=== PATIENT | male | born 1985 | race Caucasian/White ===

== ENCOUNTER 2022-05-27 17:04 | Observation (INO) | payer SELFPAY ==
[2022-05-27 18:26] LABS: Absolute Lymphocytes (CBC) 0.5 K/uL (0.7-4.9); Hematocrit 47.2 % (39.6-49.0); Lymphocytes % 6.2 % (15.3-44.8); MCV 84.6 fL (80-100); MPV 6.6 fL (7.6-11.3); RBC Red Blood Cell Count 5.57 M/uL (4.33-5.43)
[2022-05-27] MEDS ORDERED: MORPHINE 4 MG/ML SYR ONE (18:30)
[2022-05-27] MEDS ORDERED: NA CHLORIDE 0.9% 1,000 ML ONE (18:31)
[2022-05-27] MEDS ORDERED: ONDANSETRON 4 MG/2 ML VIAL ONE ×2 (18:31→20:47)
[2022-05-27 18:43] LABS: Albumin 4.5 g/dL (3.4-5.0); Potassium 3.3 mmol/L (3.5-5.1); Protein, Total 7.6 g/dL (6.4-8.2)
[2022-05-27 19:19] LABS: Urine Blood Negative (Negative); Urine Glucose Negative (Negative); Urine Protein 1+ (Negative); Urine pH 8.5 (5.0-7.0)
--- NOTE | 2022-05-27 19:50 | RAD REPORT ---
EXAM DESCRIPTION: CTAbdomen Pelvis W Contrast - 05/27/2022 7:39 pm CLINICAL HISTORY: Abdominal pain. RLQ abdominal pain COMPARISON: No comparisons TECHNIQUE: Biphasic CT imaging of the abdomen and pelvis was performed with 100 ml non-ionic IV cont rast. All CT scans are performed using dose optimization technique as appropriate and may include automated exposure control or mA/KV adjustment according to patient size. FINDINGS: Linear atelectasis is present both lung bases. Cardiac size is prominent. The liver, spleen, pancreas, adrenal glands and kidneys are within normal limits. Benign right renal cyst. Mild free fluid is seen in pelvis. The appendix is noted to be dilated to 10 mm with mild fluid in th e right lower quadrant. This is suspicious for early acute appendicitis. No bowel obstruction or shant e intraperitoneal air. No evidence of significant lymphadenopathy. No suspicious bony findings. IMPRESSION: Acute appendicitis is suspected.
[2022-05-27] MEDS ORDERED: FAMOTIDINE 20 MG/2 ML VIAL IV ONE (19:55)
[2022-05-27] MEDS ORDERED: POTASSIUM CL SA 10 MEQ TAB PO ONE (19:55)
--- NOTE | 2022-05-27 20:02 | EDPHYS ---
Physician Documentation [facility] Name: Vikas Abreu Jr Age: 37 yrs Sex: Male : 1985 Arrival Date: 05/27/2022 Time: 17:06 Bed DIS2 Private MD: ED Physician Eric Amaro HPI: 05/27 17:40 This 37 yrs old Male presents to ER via Ambulatory with complaints of Abdominal Pain. jh7 17:40 The patient presents with abdominal pain in the periumbilical area. right lower jh7 quadrant. Onset: The symptoms/episode began/occurred today. Associated signs and symptoms: Pertinent positives: nausea and vomiting, Pertinent negatives: diarrhea, fever. Patient presents with lower abdominal pain starting at 10 AM. Reports that he has vomited a few times, but denies diarrhea or fever. Reports that he took a COVID test today and that it was negative. History of a pericardial effusion at the age of 18. No history of abdominal problems.. Historical: - Allergies: 17:45 No Known Allergies; iw - Home Meds: 17:45 Cymbalta oral [Active]; trazodone Oral [Active]; iw - PSHx: 17:45 pericardiocentesis; iw ROS: 17:40 Constitutional: Negative for fever, chills, and weight loss, ENT: Negative for injury, jh7 pain, and discharge, Neck: Negative for injury, pain, and swelling, Cardiovascular: Negative for chest pain, palpitations, and edema, Respiratory: Negative for shortness of breath, cough, wheezing, and pleuritic chest pain, Back: Negative for injury and pain, Skin: Negative for injury, rash, and discoloration, Neuro: Negative for headache, weakness, numbness, tingling, and seizure. 17:40 Abdomen/GI: Positive for abdominal pain, nausea and vomiting, Negative for diarrhea, black/tarry stool, rectal bleeding. 17:40 All other systems are negative. Exam: 17:40 Head/Face: Normocephalic, atraumatic. Neck: Trachea midline, no thyromegaly or masses jh7 palpated, and no cervical lymphadenopathy. Supple, full range of motion without nuchal rigidity, or vertebral point tenderness. No Meningismus. Cardiovascular: Regular rate and rhythm with a normal S1 and S2. No gallops, murmurs, or rubs. Normal PMI, no JVD. No pulse deficits. Respiratory: Lungs have equal breath sounds bilaterally, clear to auscultation and percussion. No rales, rhonchi or wheezes noted. No increased work of breathing, no retractions or nasal flaring. Back: No spinal tenderness. No costovertebral tenderness. Full range of motion. Skin: Warm, dry with normal turgor. Normal color with no rashes, no lesions, and no evidence of cellulitis. MS/ Extremity: Pulses equal, no cyanosis. Neurovascular intact. Full, normal range of motion. Neuro: Awake and alert, GCS 15, oriented to person, place, time, and situation. Sensory grossly intact. Normal gait. 17:40 Constitutional: The patient appears alert, awake, uncomfortable. 17:40 Abdomen/GI: Inspection: abdomen appears normal, Bowel sounds: normal, Palpation: soft, mild abdominal tenderness, in the umbilical area and right lower quadrant. Vital Signs: 17:44 BP 134 / 90; Pulse 83; Resp 16; Temp 97.4; Pulse Ox 98% on R/A; iw 19:52 BP 129 / 90; Pulse 86; Resp 16; Temp 98.3(TE); Pulse Ox 97% on R/A; iw MDM: 17:44 Patient medically screened. kb 19:22 Medication response: morphine markedly relieved the patient's pain. Symptoms have jh7 improved, Zofran markedly relieved the patient's nausea. 19:57 Differential diagnosis: appendicitis, bowel obstruction, non-specific abd pain. Data [facility] reviewed: vital signs, nurses notes, lab test result(s), radiologic studies, CT scan. Data interpreted: Pulse oximetry: is 97 %. Interpretation: normal. Counseling: I had a detailed discussion with the patient and/or guardian regarding: the historical points, exam findings, and any diagnostic results supporting the discharge/admit diagnosis, the need for further work-up and treatment in the hospital. Physician consultation: Ike Bradley MD was called at 19:59, was contacted at 19:59, regarding admission, need to come to ED to see patient, and will see patient in ED. ED course: Discussed CT findings of acute appendicitis with Dr. Paredes, general surgeon. He states that he will come into the ED to evaluate the patient, and to let the warehouseman know.. 05/27 17:31 Order name: CBC with Diff; Complete Time: 18:31 [facility] 05/27 17:31 Order name: CMP; Complete Time: 18:48 [facility] 05/27 17:31 Order name: Lipase; Complete Time: 18:48 [facility] 05/27 17:31 Order name: CT Abd/Pelvis - IV Contrast Only; Complete Time: 19:52 [facility] 05/27 19:20 Order name: Urine Dipstick-Ancillary; Complete Time: 19:20 EDMS 05/27 20:07 Order name: SARS RAPID 2 05/27 17:31 Order name: IV Saline Lock; Complete Time: 18:31 [facility] 05/27 17:31 Order name: Labs collected and sent; Complete Time: 18:31 [facility] 05/27 17:31 Order name: Urine Dipstick-Ancillary (obtain specimen); Complete Time: 19:19 [facility] Administered Medications: 18:31 Drug: NS 0.9% 1000 ml Route: IV; Rate: 1 bolus; Site: left antecubital; iw 18:31 Drug: Zofran (Ondansetron) 4 mg Route: IVP; Site: left antecubital; iw 18:31 Drug: morphine 4 mg Route: IVP; Infused Over: 4 mins; Site: left antecubital; iw 19:53 Drug: Pepcid (famotidine) 20 mg Route: IVP; Site: left antecubital; iw 19:53 Drug: Potassium Chloride 40 mEq Route: PO; iw 20:20 Drug: Zosyn (piperacillin-tazobactam) 3.375 grams Route: IVPB; Infused Over: 60 mins; vc1 Site: left antecubital; 20:20 Drug: fentaNYL (PF) 50 mcg Route: IVP; Site: left antecubital; vc1 Disposition Summary: 05/27/22 20:01 Hospitalization Ordered Hospitalization Status: Observation [facility] Provider: Ike Bradley Karmen Condition: Stable [facility] Problem: new [facility] Symptoms: have improved [facility] Bed/Room Type: Standard [facility] Location: Operating Room(05/27/22 20:06) Room Assignment: (05/27/22 20:06) Diagnosis - Unspecified acute appendicitis [facility] Forms: - Medication Reconciliation Form [facility] - SBAR form [facility] Signatures: Dispatcher [employer] Chula Baca, SHIP JOINER-C SHIP JOINER-Daniela Mota RN RN mw Williams, Irene, RN RN Karey Ambrocio RN RN vc1 Mary Brambila, JESENIA [place] [id number] Corrections: (The following items were deleted from the chart) 20:06 20:01 Telemetry/MedSurg (observation) [facility] 20:06 20:01 [facility]
--- NOTE | 2022-05-27 20:02 | ER ---
Nurse's Notes [facility] Name: Vikas Abreu Jr Age: 37 yrs Sex: Male : 1985 Arrival Date: 05/27/2022 Time: 17:06 Bed DIS2 Private MD: Diagnosis: Unspecified acute appendicitis Presentation: 05/27 17:44 Chief complaint: Patient states: lower abd pain since 10 am, took some pepto, +vomit , iw +chills, +nausea. Coronavirus screen: Client presents with at least one sign or symptom that may indicate coronavirus-19. Ebola Screen: Patient negative for fever greater than or equal to 101.5 degrees Fahrenheit, and additional compatible Ebola Virus Disease symptoms Patient denies exposure to infectious person. Patient denies travel to an Ebola-affected area in the 21 days before illness onset. No symptoms or risks identified at this time. Initial Sepsis Screen: Does the patient meet any 2 criteria? No. Patient's initial sepsis screen is negative. Does the patient have a suspected source of infection? No. Patient's initial sepsis screen is negative. Risk Assessment: Do you want to hurt yourself or someone else? Patient reports no desire to harm self or others. Onset of symptoms was May 27, 2022. 17:44 Method Of Arrival: Ambulatory iw 17:44 Acuity: DONNA 3 iw Historical: - Allergies: 17:45 No Known Allergies; iw - Home Meds: 17:45 Cymbalta oral [Active]; trazodone Oral [Active]; iw - PSHx: 17:45 pericardiocentesis; iw Screenin:14 Abuse screen: Denies threats or abuse. Denies injuries from another. Nutritional iw screening: No deficits noted. Tuberculosis screening: No symptoms or risk factors identified. Fall Risk IV access (20 points). Assessment: 19:14 Reassessment: Patient appears in no apparent distress at this time. Patient and/or iw family updated on plan of care and expected duration. Pain level reassessed. Patient is alert, oriented x 3, equal unlabored respirations, skin warm/dry/pink. Patient states feeling better. Vital Signs: 17:44 BP 134 / 90; Pulse 83; Resp 16; Temp 97.4; Pulse Ox 98% on R/A; iw 19:52 BP 129 / 90; Pulse 86; Resp 16; Temp 98.3(TE); Pulse Ox 97% on R/A; iw ED Course: 17:06 Patient arrived in ED. rg4 17:13 [facility] jh7 17:13 Eric Amaro MD is Attending Physician. jh7 17:44 PHCP role handed off by Mary Brambila FNP kb 17:44 Chula Sutton FNP-C is PHCP. kb 17:45 Triage completed. iw 17:45 Mary Brambila FNP is PHCP. kb 17:46 Arm band placed on. iw 17:50 Initial lab(s) drawn, by me, sent to lab. Inserted saline lock: 20 gauge in left iw antecubital area, using aseptic technique. Blood collected. 19:16 Kena Ram, RN is Primary Nurse. iw 19:41 CT Abd/Pelvis - IV Contrast Only In Process Unspecified. EDMS 20:00 Ike Bradley MD is Hospitalizing Provider. jh7 20:30 SARS RAPID Sent. mw2 20:47 No provider procedures requiring assistance completed. Patient admitted, IV remains in vc1 place. Administered Medications: 18:31 Drug: NS 0.9% 1000 ml Route: IV; Rate: 1 bolus; Site: left antecubital; iw 18:31 Drug: Zofran (Ondansetron) 4 mg Route: IVP; Site: left antecubital; iw 18:31 Drug: morphine 4 mg Route: IVP; Infused Over: 4 mins; Site: left antecubital; iw 19:53 Drug: Pepcid (famotidine) 20 mg Route: IVP; Site: left antecubital; iw 19:53 Drug: Potassium Chloride 40 mEq Route: PO; iw 20:20 Drug: Zosyn (piperacillin-tazobactam) 3.375 grams Route: IVPB; Infused Over: 60 mins; vc1 Site: left antecubital; 20:20 Drug: fentaNYL (PF) 50 mcg Route: IVP; Site: left antecubital; vc1 Medication: 20:48 VIS not applicable for this client. vc1 Outcome: 20:01 Decision to Hospitalize by Provider. jh7 20:47 Admitted to OR accompanied by nurse, via wheelchair. vc1 20:47 Condition: stable 20:47 Instructed on Need for surgery 20:48 Patient left the ED. vc1 Signatures: Dispatcher [employer] EDChula Vásquez, JESENIA-C PASSENGER VESSEL CHEF-Kena Napier RN RN Tamar Bhatt rg4 Caryn Miner mw2 Karey Ambrocio RN RN vc1 Mary Brambila, JESENIA HERNANDEZP jh7 Corrections: (The following items were deleted from the chart) 19:54 19:52 BP 129 / 90; Pulse 86bpm; Resp 16bpm; Pulse Ox 97% RA; iw iw
[2022-05-27] MEDS ORDERED: FENTANYL CITR 100 MCG/2 ML ONE ×2 (20:21→20:47)
[2022-05-27] MEDS ORDERED: NA CHLORIDE 0.9% 100 ML ONE (20:22)
[2022-05-27] MEDS ORDERED: PIPERACIL/TAZO 3.375 GM VIAL IV ONE (20:22)
[2022-05-27] MEDS ORDERED: propofoL 200 MG/20 ML VIAL IV ONE (20:44)
[2022-05-27] MEDS ORDERED: LIDOCAINE 1% MPF 5 ML VIAL ONE (20:45)
[2022-05-27] MEDS ORDERED: ROCURONIUM 50 MG/5 ML VIAL IV ONE (20:46)
[2022-05-27] MEDS ORDERED: KETOROLAC 30 MG/ML INJ ONE (20:47)
[2022-05-27] MEDS ORDERED: dexAMETHasone 10 MG/ML VIAL ONE (20:47)
[2022-05-27] MEDS: BUPIVACAINE 0.25% PF 10 ML VIAL ONE ×2 (20:55→21:30)
[2022-05-27] MEDS ORDERED: Ringers Lactate 1,000 ML IV ONE (20:56)
[2022-05-27 21:15] LABS: SARS-CoV-2 Antigen Rapid Res Negative (Negative)
[2022-05-27] MEDS ORDERED: ONDANSETRON 4 MG/2 ML VIAL IV PRN (21:30)
[2022-05-27] MEDS ORDERED: MORPHINE 4 MG/ML SYR IV PRN (21:30)
[2022-05-27] MEDS ORDERED: NA CHLORIDE 0.9% 1,000 ML IV SCH (21:30)
[2022-05-27] MEDS ORDERED: GLYCOPYRROLATE 0.2 MG/ML SYR ONE (21:49)
--- NOTE | 2022-05-27 22:04 | P.OP ---
Preoperative diagnosis: Acute non-perforated appendicitis Postoperative diagnosis: Acute non-perforated appendicitis Primary procedure: Laparoscopic Appendectomy Anesthesia: GETA + Local Estimated blood loss: <5cc Specimen: vermiform appendix Findings: Acute non-perforated appendicitis Complications: None Transferred to: Recovery Room Condition: Good
[2022-05-27] MEDS ORDERED: MORPHINE 2 MG/ML SYR IV PRN (22:07)
[2022-05-27] MEDS ORDERED: NEOSTIGMINE 1 MG/ML -10 ML VIAL ONE (22:17)
[2022-05-27] MEDS: HYDROMORPHONE HCL 1 MG/ML INJ ONE ×2 (22:30→22:35)
[2022-05-27 22:54] VITALS: BMI 24.4
[2022-05-27 23:11] VITALS: O2SAT 96
[2022-05-27] MEDS: HYDROCODONE/APAP 7.5/325 MG TAB PO PRN (23:17)
[2022-05-27] MEDS: D5.45NS W/KCL 20MEQ 1,000 ML IV SCH (23:19)
[2022-05-27] MEDS ORDERED: TRAZODONE 50 MG TABLET PO ONE (23:54)
--- NOTE | 2022-05-27 23:59 | OP ---
Date of Procedure: 05/27/2022 Surgeon: Ike Bradley MD, 10:05 p.m. Preoperative Diagnosis: Acute nonperforated appendicitis. Postoperative Diagnosis: Acute nonperforated appendicitis. Procedure Performed: Laparoscopic appendectomy. Anesthesia: General endotracheal with local with 0.5% Marcaine with epinephrine. Estimated Blood Loss: Less than 5 cc. Specimen: Vermiform appendix. Findings: Acute nonperforated appendicitis. Complications: None immediate. The patient was transferred to recovery room in good condition. Procedure In Detail: After informed consent was obtained, the patient was brought to the operating r oom and prepped and draped in the usual sterile fashion. After adequate anesthesia was achieved, an infraumbilical area was anesthetized with 0.25% Marcaine and sharply incised. A 5 mm 0-degree optica l trocar was attempted to be placed in the abdomen; however, insufflation was challenging at this poi nt due to strength of the abdominal wall. As such, I made a counter incision in the epigastrium. Th is was similarly anesthetized and sharply incised. A 5 mm trocar was placed under direct visualizati on without evidence of complication. Insufflation was obtained to 15 mmHg at this time. There was n o injury to vital structures upon entry into the abdomen. The additional prior placed attempted troc ar site in the infraumbilical position was inspected at this point. There was no injury at this poin t. I then passed a 12 mm trocar under direct visualization without evidence of complication. Additi onal trocar was placed in the right lower quadrant. This was a 5 mm trocar placed under direct visio n without evidence of complication. The patient was positioned head down right side up position. Th e appendix was grasped, elevated, and found to be nonperforated appendicitis consistent findings at t his point. There was some murky fluid in the right lower quadrant consistent with an inflammatory pr ocess. There were some adhesions to the appendix, which were taken down using the LigaSure device wi thout evidence of complication. The mesoappendiceal window was created with the Lubna retractor. Endo-KATHIA purple load was fired across the base of the appendix with good approximation of tissues. A t this point, I used a LigaSure device to take the mesoappendix down without evidence of complication . An Endo Catch bag was placed in the abdomen. The appendix was placed in Endo Catch bag, removed t hrough the umbilical trocar and sent off for pathologic examination. The abdomen was then copiously irrigated multiple times and suctioned out until completely clear. All fluid and effluent were sucti oned out. The pelvis was washed out as well at this point and suctioned out until completely clear. The patient was positioned back in neutral position. The remaining effluent was suctioned out. The umbilical trocar site was then closed using a Anant-Michelet suture passer with 0 Vicryl in interru pted fashion with good approximation of tissues. No hemostatic measures were required throughout the procedure. The remaining 2 trocars were used to decompress the abdomen under direct visualization w ithout complication and remaining trocars were removed. All skin incisions were copiously irrigated and closed with interrupted luciano. Surgicel was placed over top. The patient tolerated the proced ure without evidence of complication and transferred to PACU in good condition. All counts were naseem ect at the end of the case. JAZMIN/MEETA Voice ID: [id number] Report ID: [id number]
[2022-05-28] MEDS: PIPER TAZO 3.375 GM in NA CHLORIDE 0.9% 100 ML IV SCH ×2 (02:00→08:18)
[2022-05-28 04:13] LABS: Absolute Lymphocytes (CBC) 0.5 K/uL (0.7-4.9); Hematocrit 45.7 % (39.6-49.0); Lymphocytes % 6.7 % (15.3-44.8); MCV 84.9 fL (80-100); MPV 7.4 fL (7.6-11.3); RBC Red Blood Cell Count 5.38 M/uL (4.33-5.43)
[2022-05-28 04:30] LABS: Potassium 4.8 mmol/L (3.5-5.1)
--- NOTE | 2022-05-28 06:00 | HP ---
Date of Admission: 05/27/2022 Brief History Of Present Illness: The patient is a 37-year-old male with a past medical hi story of Pectus carinatum, status post repair at the age of 18 or 19. He subsequently had a pericard iocentesis for pericardial effusion, which recurred and he ultimately required a pericardial window c ompleted in 2003. He presents with a 1-1/2 day history of periumbilical, now isolated to the right l ower quadrant abdominal pain associated with nausea, vomiting, worsening tenderness, fever, headache, and severe worsening abdominal pain. Decreased p.o. intake is also associated. He is unaware of an y sick contacts. No recent travel. No COVID exposure by his report. Past Medical History: Significant for Pectus carinatum, cardiac arrhythmia of uncertain etiology. Past Surgical History: Includes, 1.Surgical repair of his Pectus carinatum. 2.Pericardiocentesis. 3.Pericardial window for recurrent pericardial effusion. 4.He has had adenoids and tonsils removed. Home Medications: Include Cymbalta and trazodone. Allergies: NO KNOWN DRUG ALLERGIES. Social History: He smokes cigarettes every day as well as marijuana. He denies any other recreation al drug use. He is currently unemployed. He lives with his . They have recently moved here [facility] and are living with family here. Review of Systems: Ten-point review of systems other than HPI, denies. Physical Examination: General: He is awake, alert, and oriented. Psychiatric: He is appropriate and conversive. HEENT: Normocephalic. Sclerae are anicteric. Mucous membranes moist. Oropharynx clear. Neck: Supple without JVD. Chest: Normal expansion and excursion, well-healed surgical scars were evident on the sternal area o f the left thoracotomy appearing incision. Otherwise, pulmonary clear to auscultation bilaterally. Abdomen: Soft with positive right lower quadrant tenderness at McBurney's point and peritonitis foca lly at the same region. Positive voluntary guarding. Positive rebound. Skin: Warm and dry. Extremities: No clubbing, cyanosis or edema. Vital Signs: Blood pressure 129/90, pulse 86, respiratory rate 16, temperature 98.3, and pulse ox 97 % on room air. Laboratory Exam: He had a laboratory exam also which revealed a white blood cell count of 8.8, hemog lobin is 15.9, hematocrit 47.2, platelet count was 140, neutrophils 87%. His chemistry 136, potassiu m 3.3, chloride 101, carbon dioxide 28, BUN 13, creatinine 1.04, glucose 91, total bilirubin 1.0, AST 34, ALT 52, alkaline phosphatase 61, lipase 41. His urine had a pH of 8.5, 1+ ketones, 1+ protein. Serology of COVID is currently pending. He had a CT scan performed of the abdomen and pelvis haleyi sanjeevy read and reviewed by myself as findings consistent with early appendicitis, specifically there i s mild free fluid in the pelvis. The appendix was noted to be dilated 10 mm with mild free fluid in the right lower quadrant suspicious for early appendicitis. No bowel obstruction, free air, free int raperitoneal air. No evidence of significant lymphadenopathy. Assessment And Plan: This is a 37-year-old male, who comes in with signs and symptoms of early nonpe rforated appendicitis. 1.IV fluid hydration. 2.Antibiotic coverage with Zosyn 3.375 IV q.6h. 3.I have explained the risks, benefits, and alternatives of laparoscopic possible open appendectomy including, but not limited to bleeding, infection, damage to surrounding tissues, need for the furthe r operation and procedures postoperative infection, need for antibiotics and other treatments in the perioperative period. The patient agrees to proceed as indicated. All questions were answered. JAZMIN/MEETA Voice ID: [id number]
[2022-05-28] MEDS ORDERED: INSULIN -REGULAR HUMAN 50 UNIT/0.5 ML ML SQ SCH (07:30)
[2022-05-28] MEDS: HYDROCODONE/APAP 7.5/325 MG TAB PO PRN (08:16)
[2022-05-28] MEDS: D5.45NS W/KCL 20MEQ 1,000 ML IV SCH (08:17)
[2022-05-28 08:50] VITALS: BP 103/64; TEMP 98.1
== END 2022-05-28 10:30 | disposition home or self-care (01) ==
LOC: ER 17:04 → ERHOLD 20:08 → 2ND 21:34
PROVIDERS: ADMIT Surgery; ATTEND Surgery
PROC: 0DTJ4ZZ Resection of Appendix, Percutaneous Endoscopic Approach (ICD-10-PCS; principal; 2022-05-27 20:45)
DX: K35.80 Unspecified acute appendicitis (principal); I49.9 Cardiac arrhythmia, unspecified; Q67.7 Pectus carinatum; F17.210 Nicotine dependence, cigarettes, uncomplicated; F12.90 Cannabis use, unspecified, uncomplicated; Z20.822 Contact with and (suspected) exposure to COVID-19
CPT/HCPCS: 36415; 74177; 80048; 80053; 81003; 83690; 85025; 87811; 88304; 94010; 94760; 96374; 96375; 99285; G0378; J1100; J1170; J2270; J2405; J2543; J2704; J2710; J3010; J3490; J7030; J7120

== ENCOUNTER 2022-07-15 08:13 | Emergency (ER) | payer SELFPAY ==
[2022-07-15] MEDS ORDERED: NA CHLORIDE 0.9% 1,000 ML ONE (08:39)
[2022-07-15] MEDS ORDERED: IBUPROFEN 200 MG TAB PO ONE (08:39)
[2022-07-15] MEDS ORDERED: ONDANSETRON 4 MG/2 ML VIAL ONE (08:39)
[2022-07-15 09:18] LABS: Absolute Lymphocytes (CBC) 0.5 K/uL (0.7-4.9); Lymphocytes % 12.8 % (15.3-44.8); MCV 85.8 fL (80-100); MPV 6.7 fL (7.6-11.3); RBC Red Blood Cell Count 5.01 M/uL (4.33-5.43)
[2022-07-15 09:22] LABS: Protime INR 1.05
[2022-07-15 09:36] LABS: ALT/SGPT 41 U/L (12-78); AST/SGOT 42 U/L (15-37); Albumin 3.7 g/dL (3.4-5.0); Alkaline Phosphatase 53 U/L (45-117); BUN Blood Urea Nitrogen 14 mg/dL (7-18); Bicarbonate 33 mmol/L (21-32); Bilirubin Direct 0.2 mg/dL (0-0.2); Bilirubin Total 0.5 mg/dL (0.2-1.0); Glomerular Filtration Rate 87 ml/min (=/>90); Glucose Level 77 mg/dL (74-106); Potassium 3.9 mmol/L (3.5-5.1); Protein, Total 6.9 g/dL (6.4-8.2); Sodium Level 138 mmol/L (136-145)
--- NOTE | 2022-07-15 09:38 | EDPHYS ---
Physician Documentation [facility] Name: Vikas Abreu Jr Age: 37 yrs Sex: Male : 1985 Arrival Date: 07/15/2022 Time: 08:18 Bed 2 Private MD: ED Physician Jarrell Acosta HPI: 07/15 15:28 This 37 yrs old Male presents to ER via EMS with complaints of Accidental Overdose. kdr 15:29 The patient was taking what he thought were Xanax bars. Apparently the bars may have kdr been contaminated with some other substance. This may have been fentanyl. Patient was found unresponsive initially and then responded to Narcan, 2 mg by EMS. The patient otherwise has no complaints and is awake and alert and appropriate at the time of my initial exam. He does not require any intervention at this time.. Onset: The symptoms/episode began/occurred just prior to arrival. Severity of symptoms: At their worst the symptoms were mild in the emergency department the symptoms are unchanged. The patient has not experienced similar symptoms in the past. The patient has not recently seen a physician. Historical: - Allergies: 08:21 No Known Allergies; bp - Home Meds: 08:21 None [Active]; bp - PSHx: 08:21 pericardiocentesis; bp - Immunization history:: Adult Immunizations up to date. - Social history:: Smoking status: unknown. ROS: 15:29 Constitutional: Negative for fever, chills, and weight loss, Eyes: Negative for injury, kdr pain, redness, and discharge, Neck: Negative for injury, pain, and swelling, Cardiovascular: Negative for chest pain, palpitations, and edema, Respiratory: Negative for shortness of breath, cough, wheezing, and pleuritic chest pain, Abdomen/GI: Negative for abdominal pain, nausea, vomiting, diarrhea, and constipation, Back: Negative for injury and pain, : Negative for injury, bleeding, discharge, and swelling, MS/Extremity: Negative for injury and deformity, Skin: Negative for injury, rash, and discoloration, Psych: Negative for depression, anxiety, suicide ideation, homicidal ideation, and hallucinations, Allergy/Immunology: Negative for hives, rash, and allergies, Endocrine: Negative for neck swelling, polydipsia, polyuria, polyphagia, and marked weight changes, Hematologic/Lymphatic: Negative for swollen nodes, abnormal bleeding, and unusual bruising. 15:29 Neuro: Positive for near syncope, weakness. Exam: 12:02 ECG was reviewed by the Attending Physician. kdr 15:29 Constitutional: This is a well developed, well nourished patient who is awake, alert, kdr and in no acute distress. Head/Face: Normocephalic, atraumatic. Eyes: Pupils equal round and reactive to light, extra-ocular motions intact. Lids and lashes normal. Conjunctiva and sclera are non-icteric and not injected. Cornea within normal limits. Periorbital areas with no swelling, redness, or edema. Neck: Trachea midline, no thyromegaly or masses palpated, and no cervical lymphadenopathy. Supple, full range of motion without nuchal rigidity, or vertebral point tenderness. No Meningismus. Chest/axilla: Normal chest wall appearance and motion. Nontender with no deformity. No lesions are appreciated. Cardiovascular: Regular rate and rhythm with a normal S1 and S2. No gallops, murmurs, or rubs. Normal PMI, no JVD. No pulse deficits. Respiratory: Lungs have equal breath sounds bilaterally, clear to auscultation and percussion. No rales, rhonchi or wheezes noted. No increased work of breathing, no retractions or nasal flaring. Abdomen/GI: Soft, non-tender, with normal bowel sounds. No distension or tympany. No guarding or rebound. No evidence of tenderness throughout. Back: No spinal tenderness. No costovertebral tenderness. Full range of motion. Skin: Warm, dry with normal turgor. Normal color with no rashes, no lesions, and no evidence of cellulitis. MS/ Extremity: Pulses equal, no cyanosis. Neurovascular intact. Full, normal range of motion. Neuro: Awake and alert, GCS 15, oriented to person, place, time, and situation. Cranial nerves II-XII grossly intact. Motor strength 5/5 in all extremities. Sensory grossly intact. Cerebellar exam normal. Normal gait. Psych: Awake, alert, with orientation to person, place and time. Behavior, mood, and affect are within normal limits. Vital Signs: 08:19 BP 142 / 86; Pulse 90; Resp 16; Temp 98; Pulse Ox 99% ; bp MDM: 09:37 Patient medically screened. kdr 15:29 Data reviewed: vital signs, nurses notes, lab test result(s), radiologic studies. kdr Counseling: I had a detailed discussion with the patient and/or guardian regarding: the historical points, exam findings, and any diagnostic results supporting the discharge/admit diagnosis, lab results, radiology results, the need for outpatient follow up, Patient remained stable in the ED and had no signs of progression. He was discharged in stable condition. He was happy with the care provided the plan for discharge and follow-up. 07/15 08:19 Order name: Acetaminophen kdr 07/15 08:19 Order name: Basic Metabolic Panel kdr 07/15 08:19 Order name: CBC with Diff kdr 07/15 08:19 Order name: ETOH Level kdr 07/15 08:19 Order name: Hepatic Function kdr 07/15 08:19 Order name: PT-INR kdr 07/15 08:19 Order name: Ptt, Activated kdr 07/15 08:19 Order name: Salicylate kdr 07/15 08:19 Order name: EKG; Complete Time: 08:20 kdr 07/15 08:19 Order name: EKG - Nurse/Tech; Complete Time: 08:43 kdr 07/15 08:19 Order name: IV Saline Lock; Complete Time: 08:23 kdr 07/15 08:19 Order name: Suicide Screening ([place]); Complete Time: 08:23 kdr Administered Medications: 08:45 Drug: NS 0.9% 1000 ml Route: IV; Rate: 1 bolus; Site: right antecubital; bp 08:45 Drug: Ibuprofen 600 mg Route: PO; bp 08:45 Drug: Zofran (Ondansetron) 4 mg Route: IVP; Site: right antecubital; bp Disposition Summary: 07/15/22 09:37 Discharge Ordered Location: Home kdr Problem: new kdr Symptoms: have improved kdr Condition: Stable kdr Diagnosis - Other psychoactive substance abuse kdr - Other psychoactive substance abuse, uncomplicated kdr Followup: kdr - With: Private Physician - When: 2 - 3 days - Reason: If symptoms return, Further diagnostic work-up, Recheck today's complaints, Continuance of care, Re-evaluation by your physician Discharge Instructions: - Discharge Summary Sheet kdr - Substance Use Disorder kdr - Supporting Someone With an Addiction kdr Forms: - Medication Reconciliation Form kdr - Thank You Letter kdr Signatures: Dispatcher [employer] EDJarrell Worthy MD MD kdr aKin Klein, RN RN bp
--- NOTE | 2022-07-15 09:38 | ER ---
Nurse's Notes [facility] Name: Vikas Abreu Jr Age: 37 yrs Sex: Male : 1985 Arrival Date: 07/15/2022 Time: 08:18 Bed 2 Private MD: Diagnosis: Other psychoactive substance abuse;Other psychoactive substance abuse, uncomplicated Presentation: 07/15 08:19 Chief complaint: EMS states: ACCIDENTAL OVERDOSE. Coronavirus screen: At this time, the bp client does not indicate any symptoms associated with coronavirus-19. Ebola Screen: No symptoms or risks identified at this time. Initial Sepsis Screen: Does the patient meet any 2 criteria? No. Patient's initial sepsis screen is negative. Does the patient have a suspected source of infection? No. Patient's initial sepsis screen is negative. Risk Assessment: Do you want to hurt yourself or someone else? Patient reports no desire to harm self or others. Onset of symptoms was July 15, 2022 at 07:00. Care prior to arrival: Medication(s) given: 2MG NARCAN IV initiated. 18 GA, in the right antecubital area. 08:19 Method Of Arrival: EMS: [facility] bp 08:19 Acuity: DONNA 3 bp Triage Assessment: 08:21 General: Appears in no apparent distress. Behavior is calm, cooperative, appropriate bp for age. Pain: Denies pain. EENT: No deficits noted. Neuro: Level of Consciousness is awake, alert, obeys commands, Oriented to Appropriate for age. Cardiovascular: No deficits noted. Respiratory: No deficits noted. GI: Reports nausea. : No signs and/or symptoms were reported regarding the genitourinary system. Derm: No deficits noted. Musculoskeletal: No deficits noted. Historical: - Allergies: 08:21 No Known Allergies; bp - Home Meds: 08:21 None [Active]; bp - PSHx: 08:21 pericardiocentesis; bp - Immunization history:: Adult Immunizations up to date. - Social history:: Smoking status: unknown. Screenin:22 Abuse screen: Denies threats or abuse. Denies injuries from another. Nutritional bp screening: No deficits noted. Tuberculosis screening: No symptoms or risk factors identified. Fall Risk None identified. Assessment: 08:22 General: SEE TRIAGE NOTE. bp 09:42 Reassessment: PT D/C HOME AMBULATORY WITH FAMILY, DX WITH SUBSTANCE ABUSE. bp Overdose: 09:00 [place] Suicide Severity Screening: "In the past month, have you wished you were bp or wished you could go to sleep and not wake up?" Patient responds "no." "In the past month, have you actually had any thoughts of killing yourself?" Patient responds "no." "In your lifetime, have you ever done anything, started to do anything, or prepared to do anything to end your life?" Patient responds "no.". Vital Signs: 08:19 BP 142 / 86; Pulse 90; Resp 16; Temp 98; Pulse Ox 99% ; bp ED Course: 08:18 Patient arrived in ED. bp 08:19 Jarrell Acosta MD is Attending Physician. kdr 08:20 Triage completed. bp 08:22 Arm band placed on. bp 08:22 Patient has correct armband on for positive identification. Bed in low position. Call bp light in reach. Side rails up X2. 08:22 Maintain EMS IV. Dressing intact. Good blood return noted. Site clean \\T\\ dry. Gauge \\T\\ bp site: 18 G R AC. 08:43 Kain Klein, RN is Primary Nurse. bp 09:42 No provider procedures requiring assistance completed. IV discontinued, intact, bp bleeding controlled, No redness/swelling at site. Pressure dressing applied. Administered Medications: 08:45 Drug: NS 0.9% 1000 ml Route: IV; Rate: 1 bolus; Site: right antecubital; bp 08:45 Drug: Ibuprofen 600 mg Route: PO; bp 08:45 Drug: Zofran (Ondansetron) 4 mg Route: IVP; Site: right antecubital; bp Medication: 08:22 VIS not applicable for this client. bp Outcome: 09:37 Discharge ordered by . kdr 09:42 Discharged to home ambulatory, with family. bp 09:42 Condition: stable 09:42 Discharge instructions given to patient, Instructed on discharge instructions, follow up and referral plans. Demonstrated understanding of instructions, follow-up care. 09:45 Patient left the ED. bp Signatures: Jarrell Acosta MD MD kdr Kain Klein, RN RN bp
--- NOTE | 2022-07-15 12:29 | EKG ---
Test Date: 2022-07-15 Test Time: 08:38:47 Maintenance Welder: BP MEASUREMENT RESULTS: Intervals: Rate: 100 MO: 196 QRSD: 96 QT: 366 QTc: 472 [place]: P: 61 MO: 196 QRS: 105 T: 49 INTERPRETIVE STATEMENTS: Normal sinus rhythm Possible Left atrial enlargement Incomplete right bundle branch block Anterolateral infarct, age undetermined Abnormal ECG No previous ECG available for comparison Electronically Signed On 07-15-22 12:27:45 CDT by Barrington Joy
[2022-07-16 17:02] VITALS: BP 142/86; TEMP 98; O2SAT 99
== END 2022-07-15 09:45 | disposition home or self-care (01) ==
LOC: ER 08:13
DX: F19.10 Other psychoactive substance abuse, uncomplicated (principal)
CPT/HCPCS: 36415; 80048; 80076; 80320; 80329; 85025; 85610; 85730; 93005; 96374; 99283; J2405; J7030

== ENCOUNTER 2022-07-15 13:35 | Emergency (ER) | payer SELFPAY ==
[2022-07-15] MEDS ORDERED: ONDANSETRON 4 MG/2 ML VIAL ONE (14:26)
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
--- NOTE | 2022-07-15 16:13 | EDPHYS ---
Physician Documentation [facility] Name: Vikas Abreu Jr Age: 37 yrs Sex: Male : 1985 Arrival Date: 07/15/2022 Time: 13:36 Bed 6 Private MD: ED Physician Jarrell Acosta HPI: 07/15 13:40 This 37 yrs old Male presents to ER via EMS with complaints of Drug Abuse. kdr 13:40 Patient states that he was looking at a boat trailer with his mother's boyfriend when kdr he had a syncopal episode. He had been seen here earlier today for substance abuse and possible drug overdose. Prior to that he had taken benzodiazepines that may have been laced with other materials or substances. He was discharged previously today from the hospital in stable condition. Onset: The symptoms/episode began/occurred suddenly, just prior to arrival. Severity of symptoms: At their worst the symptoms were. The patient has experienced similar episodes in the past, a few times. The patient has been recently seen at the [facility] Emergency Department, today. EMS reports that they gave the patient 1 mg of Narcan and that he came back to baseline. They indicated that he had a respiratory rate of about 4 though was not hypoxic prior to initiation and infusion of the Narcan. Historical: - Allergies: 13:38 No Known Allergies; bp - Home Meds: 13:38 None [Active]; bp - PMHx: 13:38 None; bp - Immunization history:: Adult Immunizations up to date. - Social history:: Smoking status: Patient reports the use of cigarette tobacco products, unknown amount. ROS: 13:40 Constitutional: Negative for fever, chills, and weight loss, Eyes: Negative for injury, kdr pain, redness, and discharge, ENT: Negative for injury, pain, and discharge, Neck: Negative for injury, pain, and swelling, Cardiovascular: Negative for chest pain, palpitations, and edema, Respiratory: Negative for shortness of breath, cough, wheezing, and pleuritic chest pain, Abdomen/GI: Negative for abdominal pain, nausea, vomiting, diarrhea, and constipation, Back: Negative for injury and pain. 13:40 Neuro: Positive for loss of consciousness, syncope, Negative for altered mental status, dizziness, gait disturbance, headache. 13:40 Psych: Positive for Negative for anxiety, depression, drug dependence, alcohol dependence, auditory hallucinations, visual hallucinations, homicidal ideation, insomnia, suicide gesture, suicidal ideation, acute changes. Exam: 13:40 Constitutional: This is a well developed, well nourished patient who is awake, alert, kdr and in no acute distress. Head/Face: Normocephalic, atraumatic. Eyes: Pupils equal round and reactive to light, extra-ocular motions intact. Lids and lashes normal. Conjunctiva and sclera are non-icteric and not injected. Cornea within normal limits. Periorbital areas with no swelling, redness, or edema. Neck: Trachea midline, no thyromegaly or masses palpated, and no cervical lymphadenopathy. Supple, full range of motion without nuchal rigidity, or vertebral point tenderness. No Meningismus. Chest/axilla: Normal chest wall appearance and motion. Nontender with no deformity. No lesions are appreciated. Back: No spinal tenderness. No costovertebral tenderness. Full range of motion. Skin: Warm, dry with normal turgor. Normal color with no rashes, no lesions, and no evidence of cellulitis. Vital Signs: 13:36 BP 138 / 90; Pulse 88; Resp 16; Temp 98; Pulse Ox 98% on R/A; bp 14:57 BP 108 / 89; Pulse 86; Resp 17; Pulse Ox 100% ; jh6 16:02 BP 125 / 97; Pulse 97; Resp 16; Pulse Ox 98% ; bp 16:44 BP 134 / 81; Pulse 96; Resp 18; Pulse Ox 96% on 2 lpm NC; jh6 MDM: 13:40 Counseling: I had a detailed discussion with the patient and/or guardian regarding: the kdr historical points, exam findings, and any diagnostic results supporting the discharge/admit diagnosis. 16:13 Patient medically screened. kdr 17:55 Data reviewed: vital signs, nurses notes, lab test result(s), radiologic studies. kdr Administered Medications: 14:50 CANCELLED (Duplicate Order): Ondansetron 2 mg PO once jh6 14:50 Drug: Zofran (Ondansetron) 4 mg Route: IVP; Site: left forearm; jh6 16:41 Drug: NARcan (naloxone) 1 mg Route: IVP; Site: left forearm; jh6 17:29 Follow up: Response: Marked relief of symptoms jh6 Disposition Summary: 07/15/22 16:13 Discharge Ordered Location: Home kdr Problem: new kdr Symptoms: have improved kdr Condition: Stable kdr Diagnosis - Altered mental status, unspecified kdr - Other psychoactive substance abuse, uncomplicated kdr Followup: kdr - With: Private Physician - When: 2 - 3 days - Reason: If symptoms return, Further diagnostic work-up, Recheck today's complaints, Continuance of care, Re-evaluation by your physician Discharge Instructions: - Discharge Summary Sheet kdr - Finding Treatment for Addiction kdr - Substance Use Disorder kdr - Illegal Drug Use Information, Adult kdr Forms: - Medication Reconciliation Form kdr - Thank You Letter kdr Signatures: Jarrell Acosta MD MD kdr Kain Klein RN RN bp Mary Rosario RN RN jh6 Corrections: (The following items were deleted from the chart) 13:39 13:38 PSHx: pericardiocentesis; bp bp 14:50 14:50 Ondansetron 2 mg PO once ordered. jh6 jh6
[2022-07-15] MEDS ORDERED: NALOXONE HCL 2 MG/2 ML VIAL ONE (16:41)
[2022-07-17 00:54] VITALS: TEMP 98
[2022-07-17 01:02] VITALS: BP 134/81; O2SAT 96
== END 2022-07-15 17:31 | disposition home or self-care (01) ==
LOC: ER 13:35
DX: R41.82 Altered mental status, unspecified (principal); F19.10 Other psychoactive substance abuse, uncomplicated; Z72.0 Tobacco use
CPT/HCPCS: 93005; 96374; 96375; 99284; J2310; J2405

== ENCOUNTER 2022-07-16 06:34 | Emergency (ER) | payer SELFPAY ==
[2022-07-16] MEDS ORDERED: NA CHLORIDE 0.9% 1,000 ML ONE (07:01)
[2022-07-16 07:06] LABS: Absolute Lymphocytes (CBC) 0.8 K/uL (0.7-4.9); Hematocrit 41.3 % (39.6-49.0); Lymphocytes % 21.6 % (15.3-44.8); MCV 90.3 fL (80-100); RBC Red Blood Cell Count 4.57 M/uL (4.33-5.43)
[2022-07-16 07:07] LABS: Protime INR 1.22
[2022-07-16 07:13] LABS: Urine Blood 2+ (Negative); Urine Glucose Negative (Negative); Urine Protein 2+ (Negative); Urine Specific Gravity >=1.030 (1.005-1.030); Urine pH 5.5 (5.0-7.0)
[2022-07-16 07:29] LABS: Barbiturates NEGATIVE (NEGATIVE); Benzodiazepines NEGATIVE (NEGATIVE); Cocaine POSITIVE (NEGATIVE); METHAMPHETAM POSITIVE (NEGATIVE); Methadone NEGATIVE (NEGATIVE); Opiates NEGATIVE (NEGATIVE); Phencyclidine NEGATIVE (NEGATIVE); THC Cannibis POSITIVE (NEGATIVE)
[2022-07-16] MEDS ORDERED: PIPERACIL/TAZO 3.375 GM VIAL IV ONE (07:37)
[2022-07-16] MEDS ORDERED: NA CHLORIDE 0.9% 100 ML ONE (07:37)
[2022-07-16 07:38] LABS: Arterial Blood Carboxyhemoglob 2.6 % (0-1.5); Blood Gas Oxyhemoglobin 82.6 % (94-97)
[2022-07-16 07:39] LABS: ALT/SGPT 870 U/L (12-78); Albumin 3.2 g/dL (3.4-5.0); Alkaline Phosphatase 65 U/L (45-117); BUN Blood Urea Nitrogen 22 mg/dL (7-18); Bicarbonate 20 mmol/L (21-32); Bilirubin Direct 0.2 mg/dL (0-0.2); Bilirubin Total 0.3 mg/dL (0.2-1.0); Glomerular Filtration Rate 39 ml/min (=/>90); Glucose Level 102 mg/dL (74-106); Magnesium 3.1 mg/dL (1.8-2.4); NT PRO-BNP 7158 pg/mL (<125); Sodium Level 140 mmol/L (136-145); Troponin High Sensitivity 97.7 pg/mL (<58.9)
[2022-07-16 07:42] LABS: AST/SGOT 1353 U/L (15-37)
--- NOTE | 2022-07-16 07:47 | RAD REPORT ---
EXAM DESCRIPTION: [place] Single View07/16/2022 7:22 am CLINICAL HISTORY: CPR/shortness of breath COMPARISON: none FINDINGS: Endotracheal tube with its tip at the maine. An additional line overlies the mid upper chest presumably overlying artifact. Mild to moderate opacities left lung. Mild right lung opacities Cardiomegaly Marked scoliosis IMPRESSION: Endotracheal tube with its tip at the maine. [id number] opacities left lung may represent pneumonia or aspiration pneumonitis
--- NOTE | 2022-07-16 08:17 | ER ---
Nurse's Notes [facility] Name: Vikas Abreu Jr Age: 37 yrs Sex: Male : 1985 Arrival Date: 07/16/2022 Time: 06:36 Bed 2 Private MD: Diagnosis: Cardiogenic shock;Acute respiratory failure;Cocaine abuse;Adverse effect of amphetamines;Hypotension, unspecified;Hypothermia, initial encounter;Pneumonia, unspecified organism;Acute kidney failure, unspecified;Abnormal findings on diagnostic imaging of liver and biliary tract-acutely elevated AST, ALT AND ALK PHOS;Unspecified atrial fibrillation;Influenza due to other identified influenza virus with pneumonia-influenza B Presentation: 07/16 06:15 Risk Assessment: Do you want to hurt yourself or someone else? Unable to obtain. Onset ke1 of symptoms was July 16, 2022 at 05:30. 06:15 Acuity: DONNA 1 ke1 06:15 Chief complaint: EMS states: Found unresponsive in bed by girlfriend around 0530, last ke1 well known 3 am, CPR initiated on arrival ROSC after 2nd narcan. Coronavirus screen: Vaccine status:. 06:15 Method Of Arrival: EMS ke1 06:15 Initial Sepsis Screen: Does the patient meet any 2 criteria? Temp <36.0*C (96.8*F)) or ke1 > 38.3*C (100.9*F). Systolic BP < 90 mmHg. Yes Does the patient have a suspected source of infection? No. Patient's initial sepsis screen is negative. 06:15 Care prior to arrival: Oral intubation, 7.25 ET tube 28 \T\ teeth CPR Medication(s) ke1 given: Epi x 2 and Narcan x 2 IV initiated. 18 GA, in the left antecubital area, Glucose check: 106 Oxygen administered. via AMBU bag. Activity prior to arrival: unresponsive. 07:25 Ebola Screen: No symptoms or risks identified at this time. jd3 07:37 Care prior to arrival: Medication(s) given: NG tube size 14. ke1 Triage Assessment: 06:20 Respiratory: Airway via oral intubation Trachea midline Ventilator assessment: ET Tube: ke1 28 \T\ loop 7.25 the patient has severe shortness of breath. Derm: Skin is pale, Skin temperature is cool. 07:20 General: Appears comfortable. jd3 07:23 General: Appears well developed, . Behavior is unresponsive. Neuro: Doherty ke1 Agitation-Sedation Scale (RASS): -5 Unarousable. Historical: - Allergies: 07:25 Unable to obtain; jd3 - Home Meds: 07:25 Unable to obtain [Active]; jd3 - PMHx: 07:25 Unable to Obtain; jd3 - PSHx: 07:25 Unable to Obtain; jd3 - Immunization history:: Adult Immunizations unknown. - Social history:: Smoking status: unknown. Screenin:23 Abuse screen: no signs of abuse noted. Nutritional screening: No deficits noted. jd3 Tuberculosis screening: No symptoms or risk factors identified. Fall Risk Total White Fall Scale indicates No Risk (0-24 pts). Assessment: 07:15 General: Behavior is unresponsive. Pain: Unable to use pain scale. Patient is jd3 unresponsive. Neuro: Level of Consciousness is unresponsive, Oriented to none Pupils are fixed, dilated. Cardiovascular: Heart tones present Rhythm is irregular. Respiratory: Airway via oral intubation Breath sounds are clear bilaterally. GI: No signs and/or symptoms were reported involving the gastrointestinal system. Bowel sounds present X 4 quads. : Lund in place. EENT: No signs and/or symptoms were reported regarding the EENT system. Derm: Skin is intact, Skin is pale, Skin temperature is cool. Musculoskeletal: No signs and/or symptoms reported regarding the musculoskeletal system. 07:30 Reassessment: No changes from previously documented assessment. Patient and/or family jd3 updated on plan of care and expected duration. Pain level reassessed. 07:45 Reassessment: No changes from previously documented assessment. Patient and/or family jd3 updated on plan of care and expected duration. Pain level reassessed. 08:00 Reassessment: No changes from previously documented assessment. Patient and/or family jd3 updated on plan of care and expected duration. Pain level reassessed. 08:15 Reassessment: No changes from previously documented assessment. Patient and/or family jd3 updated on plan of care and expected duration. Pain level reassessed. 08:30 Reassessment: No changes from previously documented assessment. Patient and/or family jd3 updated on plan of care and expected duration. Pain level reassessed. 08:45 Reassessment: No changes from previously documented assessment. Patient and/or family jd3 updated on plan of care and expected duration. Pain level reassessed. 09:00 Reassessment: No changes from previously documented assessment. Patient and/or family jd3 updated on plan of care and expected duration. Pain level reassessed. 09:15 Reassessment: No changes from previously documented assessment. Patient and/or family jd3 updated on plan of care and expected duration. Pain level reassessed. 09:30 Reassessment: No changes from previously documented assessment. Patient and/or family jd3 updated on plan of care and expected duration. Pain level reassessed. 09:45 Reassessment: No changes from previously documented assessment. Patient and/or family jd3 updated on plan of care and expected duration. Pain level reassessed. 10:00 Reassessment: No changes from previously documented assessment. Patient and/or family jd3 updated on plan of care and expected duration. Pain level reassessed. report called to [facility]. 10:15 Reassessment: No changes from previously documented assessment. Patient and/or family jd3 updated on plan of care and expected duration. Pain level reassessed. report given to [facility]. Vital Signs: 06:15 BP 49 / 34; Pulse 50; Resp 16; Temp 90.5(TE); Pulse Ox 87% on ETT ambu; Weight 76 kg; ke1 Height 5 ft. 11 in. (180.34 cm); 06:44 BP 45 / 36; Pulse 80; Resp 26; Pulse Ox 88% on ETT ambu; ke1 06:50 BP 74 / 39; Pulse 77; Resp 26; Pulse Ox 95% on ETT ambu; ke1 07:15 BP 96 / 56; Pulse 80; Resp 26; Temp 86.3(C); Pulse Ox 98% on ETT vent; jd3 07:30 BP 114 / 82; Pulse 62; Resp 26; Pulse Ox 100% on ETT vent; jd3 08:00 BP 168 / 102; Pulse 62; Resp 26; Pulse Ox 100% on ETT vent; jd3 08:05 BP 168 / 106; jd3 08:15 BP 183 / 124; Pulse 63; Resp 16; Pulse Ox 100% on ETT vent; jd3 08:20 BP 183 / 124; jd3 08:30 BP 173 / 103; Pulse 64; Resp 26; Pulse Ox 100% on ETT vent; jd3 08:31 BP 188 / 136; jd3 08:45 BP 168 / 118; Pulse 68; Resp 26; Pulse Ox 100% on ETT vent; jd3 09:00 BP 168 / 118; jd3 09:00 BP 175 / 108; Pulse 72; Resp 26 A; Temp 89.9(C); Pulse Ox 100% on ETT vent; jd3 09:30 BP 185 / 104; Pulse 81; Resp 26 A; Pulse Ox 99% on ETT vent; jd3 10:00 BP 168 / 101; Pulse 86; Resp 26 A; Temp 92.9(C); Pulse Ox 100% on ETT vent; jd3 06:15 Body Mass Index 23.37 (76.00 kg, 180.34 cm) ke1 ED Course: 06:30 Initial lab(s) drawn, by me, sent to lab. Inserted saline lock: 14 gauge in right jb4 forearm, using aseptic technique. Blood collected. 06:36 Patient arrived in ED. eb 06:55 Assisted provider with central line placement. Set up central line tray. in right ke1 femoral. 06:58 Maury Boone, TAHIRA is Primary Nurse. ke1 06:59 Eric Amaro MD is Attending Physician. suzi 07:03 Triage completed. ke1 07:05 Arm band placed on. EKG completed in triage. Results shown to MD. jd3 07:06 Troponin HS Sent. jb4 07:06 PT-INR Sent. jb4 07:06 Magnesium Sent. jb4 07:06 NT PRO-BNP Sent. jb4 07:06 CBC with Diff Sent. jb4 07:06 Basic Metabolic Panel Sent. jb4 07:06 LFT's Sent. jb4 07:10 Lund cath inserted, using sterile technique, 16 Fr., by ED staff, balloon inflated, to jd3 gravity drainage, Patient tolerated well. 07:15 Temperature Lund placed; Critcore. Thermoregulation: Jori blanket applied. vc1 07:15 Patient has correct armband on for positive identification. Placed in gown. Bed in low jd3 position. Call light in reach. Side rails up X2. Warm blanket given. Verbal reassurance given. Head of bed elevated. 07:20 Primary Nurse role handed off by Maury Boone, RN jd3 07:20 Arnold Bang, TAHIRA is Primary Nurse. jd3 07:24 XRAY Chest (1 view) In Process Unspecified. EDMS 07:51 transfer initiated with Heidi Dawn from the [facility]. eb 08:02 CT Traumagram (Head C Spine CAP wo con) In Process Unspecified. EDMS 08:[address] Catalan the supervisor securities [employer] electrical subcontractor for [facility] with Dr. Amaro for eb patient transfer consultation. 08:59 NGT: inserted 16 Fr. other inserted via oral route. EMS ng removed. em6 09:02 administrative approval given by Heidi Dawn Rn/ patient has been accepted to [address]/ Dr. Ralph Youssef has accepted the patient in transfer/ report to be called to the transfer center at [phone]. 09:05 Chest Single View XRAY: ett out 2 cm In Process Unspecified. EDMS 10:00 Cleaned of incontinence. pt with loose stool BM. jd3 10:21 Patient transferred, IV remains in place. jd3 Administered Medications: 06:20 Drug: NS 0.9% 1000 ml Route: IV; Rate: 1 bolus; Site: left antecubital; ke1 07:40 Follow up: IV Status: Completed infusion jd3 06:20 Drug: NS 0.9% 1000 ml Route: IV; Rate: 1 bolus; Site: left antecubital; ke1 07:20 Follow up: Response: No adverse reaction; IV Status: Completed infusion jd3 06:38 Drug: Levophed (norepinephrine) 0.1 mcg/kg/min {Note: started at 5mcg.} Route: IV; jb4 Rate: calculated rate; Site: right forearm; 06:45 Follow up: Rate change 10 mg/hr jb4 07:13 Follow up: Rate change 15 mcg/min jb4 08:05 Follow up: BP 168 / 106; Rate change 12 mcg/min jd3 08:20 Follow up: BP 183 / 124; Rate change 10 mcg/min jd3 08:31 Follow up: BP 188 / 136; Rate change 5 mcg/min jd3 09:00 Follow up: BP 168 / 118; IV Pause: 07/16/2022 09:00; IV Pause Reason: Limited IV jd3 access/Medication interaction 10:26 Follow up: Response: No adverse reaction; Blood pressure is elevated; IV Status: Order jd3 to discontinue infusion 06:40 Drug: NS 0.9% 1000 ml Route: IV; Rate: 1 bolus; Site: left antecubital; ke1 07:40 Follow up: Response: No adverse reaction; IV Status: Completed infusion jd3 06:46 Drug: Sodium Bicarbonate 50 mEq Route: IVP; Site: left antecubital; ke1 07:40 Follow up: Response: No adverse reaction jd3 06:46 Drug: Sodium Bicarbonate 50 mEq Route: IVP; Site: left antecubital; ke1 07:00 Follow up: Response: No adverse reaction jd3 07:32 Drug: Zosyn (piperacillin-tazobactam) 3.375 grams Route: IVPB; Infused Over: 60 mins; jd3 Site: right femoral; 08:13 Follow up: Response: No adverse reaction; IV Status: Completed infusion jd3 Medication: 07:23 VIS not applicable for this client. jd3 Outcome: 08:16 ER care complete, transfer ordered by MD. archer 10:20 Transferred by ground EMS to [facility], Transfer form completed. jd3 X-rays sent w/ patient. 10:20 Condition: stable 10:20 Instructed on the need for transfer. 10:26 Patient left the ED. jd3 Signatures: Dispatcher [employer] EDMS Eric Amaro MD MD cha Bryson, James, RN RN [email or web address] Arnold Bang RN RN jd3 Nidia Neff Vanessa RN RN 1 Maury Boone RN RN ke1 Carolann Arroyo, RN RN em6 Corrections: (The following items were deleted from the chart) 07:23 06:15 BP 49 / 34; Pulse 50bpm; Resp 16bpm; Pulse Ox 87% ET / Ambu; 76 kg; Height 5 ft. ke1 11 in.; BMI: 23.3; ke1 07:33 07:15 Neuro: Level of Consciousness is unresponsive, Oriented to none jd3 ke1 07:40 07:40 BP 114 / 82; Pulse 62bpm; Resp 26bpm; Pulse Ox 100% ET / Ventilator; jd3 jd3 07:40 07:15 EENT: No signs and/or symptoms were reported regarding the EENT system. j j 07:40 07:15 Neuro: Level of Consciousness is unresponsive, Oriented to none ke1 j 08:15 08:14 Rate change 12 mg/hr [facility] j 08:22 08:05 BP 168 / 106; Rate change 12 mg/hr [place] [id number] 08:23 08:21 BP 183 / 124; Rate change 10 mg/hr [place] [id number] 08:23 08:22 BP 168 / 106; Rate change 12 mcg/min [facility] j
--- NOTE | 2022-07-16 08:17 | EDPHYS ---
Physician Documentation [facility] Name: Vikas Abreu Jr Age: 37 yrs Sex: Male : 1985 Arrival Date: 07/16/2022 Time: 06:36 Bed 2 Private MD: ED Physician Eric Amaro HPI: 07/16 08:05 This 37 yrs old Male presents to ER via EMS with complaints of sp cpr , ROSC. suzi 08:05 Preceding the arrest, the patient was found down by bystander. The arrest occurred at [facility]. Pre-hospital course: The arrest was not witnessed by others. Bystanders at the scene performed CPR. EMS care prior to arrival: initiation of ACLS, peripheral IV, was successfully placed. intubation was successfully performed, ACLS details: SEE REPORT. FOUND NOT BREATHING IN BED. Onset: The symptoms/episode began/occurred this morning, today. Severity of symptoms: At their worst the symptoms were incapacitating in the emergency department the symptoms are unchanged. It is unknown whether or not the patient has had similar symptoms in the past. Historical: - Allergies: 07:25 Unable to obtain; jd3 - Home Meds: 07:25 Unable to obtain [Active]; jd3 - PMHx: 07:25 Unable to Obtain; jd3 - PSHx: 07:25 Unable to Obtain; jd3 - Immunization history:: Adult Immunizations unknown. - Social history:: Smoking status: unknown. ROS: 08:07 Eyes: suzi 08:07 Unable to obtain ROS due to patient is on ventilator, cpr. Exam: 08:07 Cardiovascular: Rate: tachycardic, Rhythm: irregularly irregular, Pulses: Pulses are 1+ suzi in bilateral radial, brachial, femoral, popliteal, posterior tibial and and dorsalis pedis arteries.. thready, weak, Heart sounds: normal, Edema: is not appreciated, JVD: is not appreciated. 08:07 ECG was reviewed by the Attending Physician. Vital Signs: 06:15 BP 49 / 34; Pulse 50; Resp 16; Temp 90.5(TE); Pulse Ox 87% on ETT ambu; Weight 76 kg; ke1 Height 5 ft. 11 in. (180.34 cm); 06:44 BP 45 / 36; Pulse 80; Resp 26; Pulse Ox 88% on ETT ambu; ke1 06:50 BP 74 / 39; Pulse 77; Resp 26; Pulse Ox 95% on ETT ambu; ke1 07:15 BP 96 / 56; Pulse 80; Resp 26; Temp 86.3(C); Pulse Ox 98% on ETT vent; jd3 07:30 BP 114 / 82; Pulse 62; Resp 26; Pulse Ox 100% on ETT vent; jd3 08:00 BP 168 / 102; Pulse 62; Resp 26; Pulse Ox 100% on ETT vent; jd3 08:05 BP 168 / 106; jd3 08:15 BP 183 / 124; Pulse 63; Resp 16; Pulse Ox 100% on ETT vent; jd3 08:20 BP 183 / 124; jd3 08:30 BP 173 / 103; Pulse 64; Resp 26; Pulse Ox 100% on ETT vent; jd3 08:31 BP 188 / 136; jd3 08:45 BP 168 / 118; Pulse 68; Resp 26; Pulse Ox 100% on ETT vent; jd3 09:00 BP 168 / 118; jd3 09:00 BP 175 / 108; Pulse 72; Resp 26 A; Temp 89.9(C); Pulse Ox 100% on ETT vent; jd3 09:30 BP 185 / 104; Pulse 81; Resp 26 A; Pulse Ox 99% on ETT vent; jd3 10:00 BP 168 / 101; Pulse 86; Resp 26 A; Temp 92.9(C); Pulse Ox 100% on ETT vent; jd3 06:15 Body Mass Index 23.37 (76.00 kg, 180.34 cm) ke1 MDM: 06:59 Patient medically screened. [facility] 07/16 06:38 Order name: Basic Metabolic Panel; Complete Time: 07:59 07/16 06:38 Order name: CBC with Diff; Complete Time: 07:07 07/16 06:38 Order name: LFT's; Complete Time: 07:59 07/16 06:38 Order name: Magnesium; Complete Time: 07:59 07/16 06:38 Order name: NT PRO-BNP; Complete Time: 07:59 07/16 06:38 Order name: PT-INR; Complete Time: 07:59 07/16 06:38 Order name: Troponin HS; Complete Time: 07:59 07/16 06:38 Order name: Acetaminophen; Complete Time: 07:59 07/16 06:38 Order name: ETOH Level; Complete Time: 07:59 07/16 06:38 Order name: Salicylate; Complete Time: 07:59 07/16 06:38 Order name: Urine Drug Screen; Complete Time: 07:59 07/16 06:38 Order name: ABG; Complete Time: 07:59 07/16 07:03 Order name: Blood Culture Adult (2) [facility] 07/16 07:08 Order name: Flu; Complete Time: 07:59 [facility] 07/16 06:38 Order name: XRAY Chest (1 view); Complete Time: 07:59 07/16 06:38 Order name: EKG; Complete Time: 06:39 07/16 07:01 Order name: CT Traumagram (Head C Spine CAP wo con); Complete Time: 08:36 [facility] 07/16 07:08 Order name: SARS-COV-2 RT PCR (Document "Date of Onset" if Symptomatic); Complete Time: [facility] 08:36 07/16 07:14 Order name: Urine Dipstick-Ancillary; Complete Time: 07:59 EDMS 07/16 08:05 Order name: Chest Single View XRAY: ett out 2 cm [facility] 07/16 08:37 Order name: Lactate [facility] 07/16 06:38 Order name: Cardiac monitoring; Complete Time: 07:05 07/16 06:38 Order name: EKG - Nurse/Tech; Complete Time: 07:05 07/16 06:38 Order name: IV Saline Lock; Complete Time: 07:05 07/16 06:38 Order name: Labs collected and sent; Complete Time: 07:05 07/16 06:38 Order name: O2 Per Protocol; Complete Time: 07:05 07/16 06:38 Order name: O2 Sat Monitoring; Complete Time: 07:05 07/16 07:05 Order name: Central Line Kit; Complete Time: 07:15 [facility] 07/16 07:59 Order name: Misc. Order: Jori Reese; Complete Time: 08:13 suzi EC:07 Rate is 56 beats/min. Rhythm is irregularly irregular. QRS Carpenter is Normal. CA interval suzi is normal. QT interval is normal. No Q waves. T waves are Normal. No ST changes noted. Clinical impression: Atrial Fibrillation. Interpreted by me. Reviewed by me. Administered Medications: 06:20 Drug: NS 0.9% 1000 ml Route: IV; Rate: 1 bolus; Site: left antecubital; ke1 07:40 Follow up: IV Status: Completed infusion jd3 06:20 Drug: NS 0.9% 1000 ml Route: IV; Rate: 1 bolus; Site: left antecubital; ke1 07:20 Follow up: Response: No adverse reaction; IV Status: Completed infusion jd3 06:38 Drug: Levophed (norepinephrine) 0.1 mcg/kg/min {Note: started at 5mcg.} Route: IV; jb4 Rate: calculated rate; Site: right forearm; 06:45 Follow up: Rate change 10 mg/hr jb4 07:13 Follow up: Rate change 15 mcg/min jb4 08:05 Follow up: BP 168 / 106; Rate change 12 mcg/min jd3 08:20 Follow up: BP 183 / 124; Rate change 10 mcg/min jd3 08:31 Follow up: BP 188 / 136; Rate change 5 mcg/min jd3 09:00 Follow up: BP 168 / 118; IV Pause: 07/16/2022 09:00; IV Pause Reason: Limited IV jd3 access/Medication interaction 10:26 Follow up: Response: No adverse reaction; Blood pressure is elevated; IV Status: Order jd3 to discontinue infusion 06:40 Drug: NS 0.9% 1000 ml Route: IV; Rate: 1 bolus; Site: left antecubital; ke1 07:40 Follow up: Response: No adverse reaction; IV Status: Completed infusion jd3 06:46 Drug: Sodium Bicarbonate 50 mEq Route: IVP; Site: left antecubital; ke1 07:40 Follow up: Response: No adverse reaction jd3 06:46 Drug: Sodium Bicarbonate 50 mEq Route: IVP; Site: left antecubital; ke1 07:00 Follow up: Response: No adverse reaction jd3 07:32 Drug: Zosyn (piperacillin-tazobactam) 3.375 grams Route: IVPB; Infused Over: 60 mins; jd3 Site: right femoral; 08:13 Follow up: Response: No adverse reaction; IV Status: Completed infusion jd3 Disposition Summary: 07/16/22 08:16 Transfer Ordered Transfer Location: [facility] suzi Reason: Higher level of care suzi Condition: Critical suzi Problem: new suzi Symptoms: have improved suzi Accepting Physician: to [facility](07/16/22 10:26) leisa Diagnosis - Cardiogenic shock szui - Acute respiratory failure suzi - Cocaine abuse suzi - Adverse effect of amphetamines suzi - Hypotension, unspecified suzi - Hypothermia, initial encounter suzi - Pneumonia, unspecified organism suzi - Acute kidney failure, unspecified suzi - Abnormal findings on diagnostic imaging of liver and biliary tract - acutely suzi elevated AST, ALT AND ALK PHOS - Unspecified atrial fibrillation suzi - Influenza due to other identified influenza virus with pneumonia - influenza B suzi Forms: - Medication Reconciliation Form suzi - SBAR form suzi Signatures: Dispatcher [employer] EDEric Tidwell MD MD cha Mickail, Joel, PA PA jmm Bryson, James, RN RN jb4 Arnold Bang RN RN jd3 Nidia Neff Kouassi, RN RN ke1 Evette Murillo MD MD sd2 Corrections: (The following items were deleted from the chart) 07:03 06:39 Head Brain Wo Cont+CT.RAD.BRZ ordered. EDMS EDMS 07:05 06:58 Head Brain Wo Cont+CT.RAD.BRZ ordered. EDMS EDMS 07:20 06:38 Suicide Screening ([place]) ordered. eb jd3 10:26 08:16 to [facility] ic[facility] suzi jd3
--- NOTE | 2022-07-16 08:29 | RAD REPORT ---
EXAM DESCRIPTION: CT - Head C Spine Cap Wo Con - 07/16/2022 8:01 am CLINICAL HISTORY: Unresponsive. CPR performed TECHNIQUE: Computed axial tomography of head, neck, chest, abdomen and pelvis obtained. IV and oral contrast not requested. Coronal and sagittal reconstruction performed. All CT scans are performed using dose optimization technique as appropriate and may include automated exposure control or mA/KV adjustment according to patient size. COMPARISON: None FINDINGS: An intracranial bleed is not seen. The ventricles are normal in caliber. An extra-axial fluid collection is not noted. . A cervical fracture is not seen. No dislocation is noted. The evaluation of mediastinum, radha, vessels, solid organs and bowel are limited secondary to the lac k of contrast administration. Endotracheal tube with its tip at the maine. Nasogastric tube within the trachea. The tip lies near the maine. A mediastinal hematoma is not noted. A pleural effusion is not seen. Right upper and right lower lobe consolidations. Left lower lobe consolidation. Cardiomegaly. Marked scoliosis The liver,spleen, pancreas, adrenals,kidneys and bladder do not demonstrate a gross significant abnor mality Mild dilatation of the small bowel. A discrete transition point is not noted. Lund catheter within the bladder. Small amount of ascites. Gallbladder is small. Right femoral line in place IMPRESSION: No acute intracranial abnormality is seen. A cervical fracture is not visualized. If the patient continues have symptoms to suggest intracrania l/spinal cord pathology MRI be recommended Endotracheal tube with its tip at the maine. Nasogastric tube within the trachea. The tip lies near the miane. Bilateral pulmonary opacities probably a combination of pneumonia and atelectasis Mild dilatation small bowel probably an ileus. This should be monitored on follow-up x-ray
--- NOTE | 2022-07-16 10:10 | RAD REPORT ---
EXAM DESCRIPTION: [place] Single View07/16/2022 9:03 am CLINICAL HISTORY: Device placement endotracheal tube placement IMPRESSION: An endotracheal tube has been retracted. Its tip is in good position. It lies several ce ntimeters above the maine. Nasogastric tube however still lies within the trachea and should pulled out
--- NOTE | 2022-07-17 15:56 | EKG ---
Test Date: 2022-07-16 Test Time: 06:58:02 Neuropsychology Division Chief: JOSE C MEASUREMENT RESULTS: Intervals: Rate: 76 [place]: QRSD: 136 QT: 562 QTc: 632 [place]: P: [place]: QRS: 86 T: 60 INTERPRETIVE STATEMENTS: Atrial fibrillation with premature ventricular or aberrantly conducted complexes Nonspecific intraventricular block Abnormal ECG Compared to ECG 07/15/2022 08:39:21 Ventricular premature complex(es) now present Sinus rhythm no longer present Incomplete right bundle-branch block no longer present Myocardial infarct finding no longer present Electronically Signed On 07-17-22 15:54:32 CDT by Barrington Joy
[2022-07-17 19:26] VITALS: BP 168/101; TEMP 92.9; O2SAT 100
== END 2022-07-16 10:26 | disposition short-term general hospital (02) ==
LOC: ER 06:34
DX: R57.0 Cardiogenic shock (principal); J96.00 Acute respiratory failure, unspecified whether with hypoxia or hypercapnia; F14.10 Cocaine abuse, uncomplicated; I95.9 Hypotension, unspecified; T43.625A Adverse effect of amphetamines, initial encounter; T68.XXXA Hypothermia, initial encounter; J10.00 Influenza due to other identified influenza virus with unspecified type of pneumonia; N17.9 Acute kidney failure, unspecified; I48.91 Unspecified atrial fibrillation; R93.2 Abnormal findings on diagnostic imaging of liver and biliary tract; Z20.822 Contact with and (suspected) exposure to COVID-19
CPT/HCPCS: 36415; 51702; 70450; 71045; 71250; 72125; 80048; 80076; 80307; 80320; 80329; 81003; 82805; 83605; 83735; 83880; 84484; 85025; 85610; 87040; 87804; 93005; 94002; 94003; 99291; 99292; J2543; J7030; U0003